=== PATIENT | male | born 1995 | race Caucasian/White ===

== ENCOUNTER 2018-05-07 16:40 | Emergency (ER) | END 2018-05-07 18:21 | disposition home or self-care (01) ==

== ENCOUNTER 2019-01-13 19:41 | Emergency (ER) | payer SELFPAY ==
[~2019-01-13] VITALS: Ht 170.2 cm; Wt 74.1 kg
[~2019-01-13 19:41] MED LIST: CEPH-443 PO; IBUP800T48 PO; SULF1TAB31 PO
[2019-01-13 19:46] VITALS: Ht 170.2 cm; Wt 74.1 kg
[2019-01-13] MEDS ORDERED: KETOROLAC 15 MG INJ IV STA (20:48)
[2019-01-13] MEDS ORDERED: ONDANSETRON 4 MG INJ IV STA (20:49)
[2019-01-13] MEDS ORDERED: ACET-141 PO (22:14)
[2019-01-13] MEDS ORDERED: UDMYL PO (22:14)
[2019-01-13] MEDS ORDERED: CEPH500C PO (22:14)
[2019-01-13] MEDS ORDERED: ONDA4TAB14 PO (22:14)
--- NOTE | 2019-01-13 22:20 | ERD ---
ER Documentation Chief Complaint Chief Complaint LUQ pain x 1 week with nausea HPI 24-year-old male with no significant past medical history presents for abdominal pain x4 days. The pain is in the left upper quadrant, rated 9 out of 10, intermittent, lasting about 30 minutes at a time. Pain is described as a dull sensation, is nonradiating. There is associated nausea. He also states that he has dysuria. Denies any vomiting. Denies fevers or chills. Denies diarrhea. Denies chest pain or shortness of breath. He has had prior similar symptoms about 3 months ago which resolved spontaneously. No other modifying factors n oted, no treatments tried at home. ROS All systems reviewed and are negative except as per history of present illness. Medications Home Meds Active Scripts Ondansetron (Ondansetron Odt) 4 Mg Tab.rapdis, 4 MG PO Q6H PRN for NAUSEA AND/OR VOMITING, #15 TAB Prov:RANDY ABREU DO 01/13/19 Cephalexin* (Cephalexin*) 500 Mg Capsule, 500 MG PO BID for UTI for 5 Days, #10 CAP Prov:RANDY ABREU DO 01/13/19 Magaldrate/Simethicone* (Mag-Al Plus Suspension*) 30 Ml Oral.susp, 30 ML PO Q6H PRN for GASTROINTESTINAL UPSET for 10 Days, #1 BOTTLE Prov:RANDY ABREU DO 01/13/19 Acetaminophen* (Acetaminophen*) 500 MG Extra Strength Tablet, 500 MG PO Q4H PRN for PAIN AND OR ELEVATED TEMP, #30 TAB Prov:RANDY ABREU DO 01/13/19 Ibuprofen* (Motrin*) 800 Mg Tab, 800 MG PO Q6, #30 TAB Prov:ANNA POLK PA-C 05/07/18 Cephalexin* (Keflex*) 500 Mg Capsule, 500 MG PO QID for 7 Days, CAP Prov:ANNA POLK PA-C 05/07/18 Sulfamethoxazole/Trimethoprim* (Bactrim Ds* Tablet) 1 Each Tablet, 1 TAB PO BID, #14 TAB Prov:ANNA POLK PA-C 05/07/18 Allergies Allergies: Coded Allergies: No Known Allergy (Unverified , 06/11/15) PMhx/Soc Medical and Surgical Hx: pt denies Medical Hx, pt denies Surgical Hx History of Surgery: No Anesthesia Reaction: No Hx Neurological Disorder: No Hx Respiratory Disorders: No Hx Cardiac Disorders: No Hx Psychiatric Problems: No Hx Miscellaneous Medical Probl: No Hx Alcohol Use: No Hx Substance Use: No Hx Tobacco Use: No Smoking Status: Never smoker FmHx Family History: No coronary disease Physical Exam Vitals Vital Signs Date Temp Pulse Resp B/P (MAP) Pulse Ox O2 O2 Flow FiO2 Time Delivery Rate 01/13/19 98.8 69 20 122/56 100 19:46 (78) Physical Exam Const: No acute distress Resp: Clear to auscultation bilaterally Cardio: Regular rate and rhythm, no murmurs Abd: Soft, non distended. Normal bowel sounds, tenderness palpation in the left upper quadrant, no McBurney's point tenderness, no Infante sign, no rebound or guarding noted Skin: No petechiae or rashes Back: No midline or flank tenderness Ext: No cyanosis, or edema Neur: Awake and alert Psych: Normal Mood and Affect Result Diagram: 01/13/19210401/13/192104 Results 24 hrs Laboratory Tests Test 01/13/19 21:05 White Blood Count 7.2 10^3/ul Red Blood Count 4.72 10^6/ul Hemoglobin 14.0 g/dl Hematocrit 42.1 % Mean Corpuscular Volume 89.2 fl Mean Corpuscular Hemoglobin 29.7 pg Mean Corpuscular Hemoglobin Concent 33.3 g/dl Red Cell Distribution Width 12.9 % Platelet Count 232 10^3/UL Mean Platelet Volume 10.4 fl Immature Granulocytes % 0.100 % Neutrophils % 40.6 % Lymphocytes % 46.8 % Monocytes % 8.6 % Eosinophils % 3.1 % Basophils % 0.8 % Nucleated Red Blood Cells % 0.0 /100WBC Immature Granulocytes # 0.010 10^3/ul Neutrophils # 2.9 10^3/ul Lymphocytes # 3.4 10^3/ul Monocytes # 0.6 10^3/ul Eosinophils # 0.2 10^3/ul Basophils # 0.1 10^3/ul Nucleated Red Blood Cells # 0.0 10^3/ul Urine Color YELLOW Urine Clarity CLEAR Urine pH 6.0 Urine Specific Santa Claus 1.026 Urine Ketones NEGATIVE mg/dL Urine Nitrite NEGATIVE mg/dL Urine Bilirubin NEGATIVE mg/dL Urine Urobilinogen NEGATIVE mg/dL Urine Leukocyte Esterase NEGATIVE Martha/ul Urine Hemoglobin NEGATIVE mg/dL Urine Glucose NEGATIVE mg/dL Urine Total Protein NEGATIVE mg/dl Sodium Level 140 mmol/L Potassium Level 3.8 mmol/L Chloride Level 104 mmol/L Carbon Dioxide Level 26 mmol/L Anion Gap 10 Blood Urea Nitrogen 12 mg/dl Creatinine 0.82 mg/dl Est Glomerular Filtrat Rate mL/min > 60 mL/min Glucose Level 116 mg/dl Calcium Level 9.6 mg/dl Total Bilirubin 0.3 mg/dl Direct Bilirubin 0.00 mg/dl Indirect Bilirubin 0.3 mg/dl Aspartate Amino Transf (AST/SGOT) 34 IU/L Alanine Aminotransferase (ALT/SGPT) 29 IU/L Alkaline Phosphatase 98 IU/L Total Protein 7.6 g/dl Albumin 4.4 g/dl Globulin 3.20 g/dl Albumin/Globulin Ratio 1.37 Lipase 88 U/L Current Medications Medications Dose Sig/Quinten Start Time Status Last (Trade) Ordered Route PRN Stop Time Admin Dose Reason Admin Ketorolac 15 mg ONCE STAT 01/13/19 DC 01/13/19 Tromethamine IV 20:48 21:21 (Toradol) 01/13/19 20:50 Ondansetron 4 mg ONCE STAT 01/13/19 DC 01/13/19 HCl (Zofran IV 20:49 21:21 Inj) 01/13/19 20:51 Procedures/MDM Medical Decision Making: Differential diagnosis includes but not limited to acute gastritis, acute gastroenteritis, appendicitis, cholecystitis, pancreatitis, nephrolithiasis, pyelonephritis Patient appeared well on physical exam. Nontoxic appearing. ED course: Patient was given Toradol and Zofran Symptoms improved with treatment. Labs: CBC showed no severe anemia, no elevated WBC to suggest infection CMP showed no electrolyte abnormalities, there was normal kidney and liver function Lipase was normal UA was negative for infection Imaging: Renal ultrasound was unremarkable. There is no renal stones noted, there is no hydronephrosis, no obstructive uropathy Patient's abdominal symptoms have stabilized while in the department. No evidence of severe dehydration, sepsis, or surgical abdomen Extensive discussion with family and patient that occult disease cannot be ruled out. 8 hour recheck for repeat abdominal exam is planned Given the patient has dysuria despite the negative UA, patient will be treated with antibiotic for UTI. Prescription(s): Patient given prescription for supportive medications and Keflex for UTI Patient advised to follow up with PCP in 1-2 days. Patient advised to return to ED for new or worsening symptoms. Patient stable on discharge from the ED. Disclaimer: Inadvertent spelling and grammatical errors are likely due to EHR/dictation software use and do not reflect on the overall quality of patient care. Also, please note that the electronic time recorded on this note does not necessarily reflect the actual time of the patient encounter. Departure Diagnosis: Primary Impression: Abdominal pain Abdominal location: left upper quadrant Qualified Codes: R10.12 - Left upper quadrant pain Additional Impression: Dysuria Condition: Fair Patient Instructions: Abdominal Pain Referrals: [facility] YOU HAVE RECEIVED A MEDICAL SCREENING EXAM AND THE RESULTS INDICATE THAT YOU DO NOT HAVE A CONDITION THAT REQUIRES URGENT TREATMENT IN THE EMERGENCY DEPARTMENT. FURTHER EVALUATION AND TREATMENT OF YOUR CONDITION CAN WAIT UNTIL YOU ARE SEEN IN YOUR DOCTORS OFFICE WITHIN THE NEXT 1-2 DAYS. IT IS YOUR RESPONSIBILITY TO MAKE AN APPOINTMENT FOR FOLOW-UP CARE. IF YOU HAVE A PRIMARY DOCTOR --you should call your primary doctor and schedule an appointment IF YOU DO NOT HAVE A PRIMARY DOCTOR YOU CAN CALL OUR PHYSICIAN REFERRAL HOTLINE AT IF YOU CAN NOT AFFORD TO SEE A PHYSICIAN YOU CAN CHOSE FROM THE FOLLOWING [facility] [id number] [facility]. [facility] [address] [facility]. [facility] [address] [facility] [address] [facility] [facility] [address] [facility]. [facility]. [address] Additional Instructions: Llame al doctor MAANA y jayesh beverly ZECHARIAH PARA DENTRO DE 1-2 DAVIS.Dgale a la secretaria que nosotros le instruimos hacer esta zechariah.Avise o llame si miller condicin se empeora antes de la zechariah. Regresa aqui si peor o no mejor. RANDY ABREU DO Jan 13, 2019 22:19
[2019-01-13 22:34] VITALS: BP 113/62; PULSE 52; RESP 16
== END 2019-01-13 22:35 | disposition home or self-care (01) ==
LOC: FTE 19:41
DX: R10.12 Left upper quadrant pain (principal); R30.0 Dysuria; R11.0 Nausea
CPT/HCPCS: 36415; 76775; 80053; 81003; 83690; 85025; 96374; 96375; 99285; J1885; J2405